=== PATIENT | female | born 1990 | race Caucasian/White ===

== ENCOUNTER 2017-10-11 09:15 | Inpatient (IN) | payer OTHER ==
--- NOTE | 2017-10-11 15:51 | PR ---
[facility] [address] [place], [place] [address] Signed Progress Notes IP Datetime Report Generated by CPN: 10/11/2017 15:51 PROGRESS NOTES: [id number] Impression: Normal progression of labor Other Impressions: Difficulty monitoring, RN requests internal monitors Procedures: Intrauterine Pressure Catheter; Scalp Electrode Other Procedures: Strip review Plan: Continue present management Other Informed Consents: FSE, IUPC VITAL SIGNS: [id number] Vital Signs: Reviewed; Within Normal Limits VS Notable Details: elevated systolic bp. Very painful w/ contractions EXAM: [id number] Dilatation: 2.0 Effacement: 60 Station: -2 Uterine Contractions: q2 min MEMBRANES: [id number] Pooling: Positive Membrane Status: Ruptured Amniotic Fluid Color: Clear Comments: Pt comfortable w/ epidural. FHT reassuring. Continue pitocin induction. Fetus A: [id number] FHR Baseline: 125 Variability: Moderate 6-25bpm Accelerations: 15X15 Decelerations: None FHR Category: Category I Presentation: Vertex Other Presentation: JOSSIE Comments on Fetus A: No evidence of metabolic acidosis Fetus B: [id number] Signing Physician: Cole Herrera DO Copies: ~ *Electronically Signed* 10/11/17 1555 COLE HERRERA DO PATIENT NAME: JOSEPH BRYAN PROGRESS NOTE DATE OF : 86 PHYSICIAN: COLE HERRERA DO RPT #: [id number] REPORT IS CONFIDENTIAL AND NOT TO BE RELEASED WITHOUT AUTHORIZATION
--- NOTE | 2017-10-13 09:18 | PR ---
[facility] [address] [facility] [place], [place] [address] Signed PP Progress Notes Datetime Report Generated by CPN: 10/13/2017 09:17 SUBJECTIVE: [id number] Pain: Within normal limits Nausea/Vomiting: Denies Flatus: Yes Vital Signs: [id number] Vital Signs: Reviewed; Within Normal Limits Notable Details: Pt w/ some elevated BP's overnight EXAM: [id number] Cardiovascular: Normal Respiratory: Normal Abdomen/Uterus: Normal Lochia: Normal Vulva/Perineum: Not Done CVA Tenderness: Normal Extremities: Normal Incision: Not Applicable Progress: Normal Exam Comments: Fundus firm U-2 nontender. Reflexes normal, no clonus IMPRESSION/PLAN/PROCEDURES: [id number] Impression: Normal progression Other Impression: GHTN vs PreE Plan: Discharge Procedures: None Progress Notes: Doing well, without complaint. Ready to go home. Signing Physician: Abdulaziz Wallace MD Copies: ~ *Electronically Signed* 10/13/17 09 ABDULAZIZ WALLACE MD PATIENT NAME: JOSEPH BRYAN [place] PROGRESS NOTE DATE OF : 86 PHYSICIAN: ABDULAZIZ WALLACE MD RPT #: [id number] REPORT IS CONFIDENTIAL AND NOT TO BE RELEASED WITHOUT AUTHORIZATION
== END 2017-10-13 13:25 | disposition home or self-care (01) | DRG 775 ==
LOC: FBC 09:15
PROVIDERS: ADMIT Obstetrics & Gynecology
PROC: 10E0XZZ Delivery of Products of Conception, External Approach (ICD-10-PCS; principal; 2017-10-11)
PROC: 0KQM0ZZ Repair Perineum Muscle, Open Approach (ICD-10-PCS; 2017-10-11)
PROC: 0UQMXZZ Repair Vulva, External Approach (ICD-10-PCS; 2017-10-11)
PROC: 10H07YZ Insertion of Other Device into Products of Conception, Via Natural or Artificial Opening (ICD-10-PCS; 2017-10-11)
PROC: 00HU33Z Insertion of Infusion Device into Spinal Canal, Percutaneous Approach (ICD-10-PCS; 2017-10-11)
PROC: 3E0R3BZ Introduction of Anesthetic Agent into Spinal Canal, Percutaneous Approach (ICD-10-PCS; 2017-10-11)
DX: O42.92 Full-term premature rupture of membranes, unspecified as to length of time between rupture and onset of labor (principal); O99.334 Smoking (tobacco) complicating childbirth; F17.210 Nicotine dependence, cigarettes, uncomplicated; O70.1 Second degree perineal laceration during delivery; O71.82 Other specified trauma to perineum and vulva; O99.214 Obesity complicating childbirth; E66.9 Obesity, unspecified; O13.4 Gestational [pregnancy-induced] hypertension without significant proteinuria, complicating childbirth; O99.344 Other mental disorders complicating childbirth; F41.9 Anxiety disorder, unspecified; F32.9 Major depressive disorder, single episode, unspecified; O99.62 Diseases of the digestive system complicating childbirth; K21.9 Gastro-esophageal reflux disease without esophagitis; Z79.899 Other long term (current) drug therapy; Z37.0 Single live birth; Z3A.38 38 weeks gestation of pregnancy
CPT/HCPCS: 01960; 36415; 80053; 82570; 84156; 84550; 85025; 85027; J2590; J2795; J3010; J7120